=== PATIENT | female | born 1950 | race Caucasian/White ===

== ENCOUNTER → 2020-10-28 | Outpatient (CLI) | payer MEDICARE ==
--- NOTE | 2020-10-28 17:11 | KCIC ---
EXAM: MRI RIGHT SHOULDER WITHOUT CONTRAST INDICATION: Right shoulder pain, loss of strength. Fell Mother's Day. COMPARISON: None TECHNIQUE: Multiplanar, multisequence imaging of the right shoulder without contrast. FINDINGS: The exam is limited by motion. ROTATOR CUFF: Full thickness tear of the mid supraspinatus tendon through the anterior infraspinatus tendon, measuring approximately 2.7 x 3.3 cm in sagittal by coronal diameter. Articular sided fibers are retracted to the medial edge of the humeral head. Bursal sided fibers retracted to the mid humeral head. There is deep partial articular sided tearing of the anterior supraspinatus tendon with only a thin intact remaining fibers. Tendinopathy of the subscapularis tendon. Teres minor tendon is intact. There is moderate to severe atrophy of the infraspinatus muscle. No significant atrophy of the supraspinatus or subscapularis muscles. Mild edema in the infraspinatus muscle. LABRUM: There is labral degeneration, greatest superiorly. BICEPS TENDON: Severe biceps tendinopathy as it exits the joint. ACROMIOCLAVICULAR JOINT: Severe acromioclavicular degenerative joint disease with large osteophytes. There is fluid in the acromioclavicular joint. Type I acromion with mild downsloping. GLENOHUMERAL JOINT: No large cartilage defects. No acute fracture. Marrow signal is normal. There is posterior decentering of the humeral head. OTHER: Large joint effusion with synovitis. Fluid in the subacromial-subdeltoid bursa. IMPRESSION: 1. Large full-thickness tear of the mid supraspinatus tendon through the anterior infraspinatus tendon with retraction of fibers to the mid/medial humeral head. Deep partial thickness articular sided tearing of the rest the supraspinatus tendon with thin intact fibers remaining. Moderate to severe atrophy and mild edema of the infraspinatus muscle. 2. Subscapularis tendinopathy. 3. Severe intra-articular biceps tendinopathy. 4. Severe acromioclavicular degenerative joint disease. 5. Large joint effusion with synovitis. Electronically signed by: Sammi Powell MD (10/28/2020 5:08 PM) [id number]
== END ==
LOC: KCIC MRI 12:40
PROVIDERS: ATTEND Family Medicine
DX: M19.011 Primary osteoarthritis, right shoulder (principal); M25.411 Effusion, right shoulder; M65.811 Other synovitis and tenosynovitis, right shoulder; M75.101 Unspecified rotator cuff tear or rupture of right shoulder, not specified as traumatic
CPT/HCPCS: 73221